=== PATIENT | female | born 1960 | race American Indian/Alaskan Native ===

== ENCOUNTER 2016-08-18 07:41 | Day surgery (SDC) | payer OTHER ==
[2016-08-18 08:04] VITALS: BMI 18.7
[2016-08-18 08:27] VITALS: O2SAT 100
[2016-08-18] MEDS ORDERED: Lidocaine Hydrochloride 10 ML INJ ONE (09:06)
[2016-08-18] MEDS ORDERED: Propofol 10 mg/ml Inj (20 ML) ONE (09:06)
--- NOTE | 2016-08-18 09:37 | CP.SDSHP ---
Same Day Surgery H & P - History Proposed Procedure: endoscopy Pre-Op Diagnosis: epig pain, wt loss - Previous Medical/Surgical History Cardiac: Hypertension Endocrine/Metabolic: Diabetes Neuro: Seizure Disorder - Allergies Allergies: Allergies No Known Allergies Allergy (Verified 11/19/15 07:44) - Physical Exam Vital Signs: Vital Signs 08/18/16 08:12 Temperature 97 F L Pulse Rate 80 Respiratory 17 Rate Blood Pressure 122/80 O2 Sat by Pulse 100 Oximetry Mental Status: Alert & Oriented x3 Neuro: WNL Heart: WNL Lungs: WNL GI: WNL - {Optional Preform as Required} Abdomen: WNL - Impression Impression: epig [ain, gastritis Pt. Evaluated Today:Candidate for Anesthesia & Procedure: Yes - Date & Time Date: 08/18/16 Time: 09:05 Short Stay Discharge - Short Stay Discharge Admitting Diagnosis/Reason for Visit: ABDOMINAL PAIN Disposition: HOME/ ROUTINE
[2016-08-18 10:26] VITALS: RESP 20
[2016-08-18 11:19] VITALS: BP 133/82; PULSE 82; TEMP 97.1
== END 2016-08-18 11:10 | disposition home or self-care (01) ==
LOC: C.ENDO 07:41
PROVIDERS: ATTEND Internal Medicine Gastroenterology
DX: K29.70 Gastritis, unspecified, without bleeding (principal); K44.9 Diaphragmatic hernia without obstruction or gangrene
CPT/HCPCS: 43239; 82948; 88305; J2704

== ENCOUNTER 2017-11-14 07:52 | Day surgery (SDC) | payer OTHER ==
[2017-11-14 08:37] VITALS: O2SAT 100
[2017-11-14] MEDS ORDERED: Propofol 10 mg/ml Inj (20 ML) ONE (09:59)
--- NOTE | 2017-11-14 10:07 | CP.SDSHP ---
Same Day Surgery H & P - Previous Medical/Surgical History Endocrine/Metabolic: Diabetes, Other Neuro: Other Pain: 4.Moderate Pain - Allergies Allergies: Allergies No Known Allergies Allergy (Verified 11/14/17 08:23) - Physical Exam General Appearance: N Vital Signs: Vital Signs 11/14/17 11/14/17 08:30 08:34 Temperature 65 F L 65 F L Pulse Rate 65 65 Respiratory 19 19 Rate Blood Pressure 125/72 125/72 O2 Sat by Pulse 100 100 Oximetry Mental Status: Alert & Oriented x3 Neuro: Other Heart: Other Lungs: WNL GI: Other - {Optional Preform as Required} Breast: WNL Abdomen: Other Rectal: Other Integument: WNL : WNL Ortho: Other ENT: WNL - Impression Pt. Evaluated Today:Candidate for Anesthesia & Procedure: Yes - Date & Time Time: 10:07 Short Stay Discharge - Short Stay Discharge Admitting Diagnosis/Reason for Visit: ANEMIA, BODY WEIGHT LOSS Disposition: HOME/ ROUTINE
[2017-11-14] MEDS ORDERED: Lactated Ringer's 1,000 ML IV ONE (10:10)
[2017-11-14] MEDS ORDERED: cefTRIAXone IV 1 gm in Dextros 50 ML IVPB ONE (10:22)
[2017-11-14] MEDS ORDERED: Belladonna-Phenobarbital PO STA (10:23)
[2017-11-14] MEDS ORDERED: Sucralfate 1 gm/10 ml Oral Susp UD PO ONE (10:45)
[2017-11-14 14:48] VITALS: TEMP 98
[2017-11-14 14:56] VITALS: BP 133/91; PULSE 70; RESP 23
== END 2017-11-14 11:15 | disposition home or self-care (01) ==
LOC: C.ENDO 07:52
PROVIDERS: ATTEND Specialist
DX: K29.50 Unspecified chronic gastritis without bleeding (principal); D64.9 Anemia, unspecified; R63.4 Abnormal weight loss; K21.0 Gastro-esophageal reflux disease with esophagitis; K44.9 Diaphragmatic hernia without obstruction or gangrene
CPT/HCPCS: 43239; 82948; 88305; 88342; J0696; J2001; J2704; J7120

== ENCOUNTER 2017-11-21 08:17 | Day surgery (SDC) | payer OTHER ==
[2017-11-21 08:58] VITALS: TEMP 98.6
[2017-11-21] MEDS ORDERED: Propofol 10 mg/ml Inj (20 ML) ONE ×2 (11:07→11:21)
[2017-11-21] MEDS ORDERED: Belladonna-Phenobarbital PO STA (11:09)
--- NOTE | 2017-11-21 11:09 | CP.SDSHP ---
Same Day Surgery H & P - History Proposed Procedure: COLONSCOPY Pre-Op Diagnosis: SEE NOTES - Previous Medical/Surgical History Endocrine/Metabolic: Diabetes, Other Neuro: Other Misc: Other Pain: 4.Moderate Pain - Allergies Allergies: Allergies No Known Allergies Allergy (Verified 11/21/17 08:33) - Physical Exam General Appearance: N Vital Signs: Vital Signs 11/21/17 08:42 Temperature 98.6 F Pulse Rate 86 Respiratory 20 Rate Blood Pressure 127/79 O2 Sat by Pulse 99 Oximetry Mental Status: Alert & Oriented x3 Neuro: Other Heart: Other Lungs: WNL GI: Other - Impression Pt. Evaluated Today:Candidate for Anesthesia & Procedure: Yes - Date & Time Time: 11:09 Short Stay Discharge - Short Stay Discharge Admitting Diagnosis/Reason for Visit: ABNORMAL WEIGHT LOSS,ANEMIA, UNSPECIFIED Disposition: HOME/ ROUTINE
[2017-11-21 11:42] VITALS: O2SAT 100
[2017-11-21 13:26] VITALS: PULSE 66
[2017-11-21 13:28] VITALS: BP 138/75; RESP 12
== END 2017-11-21 12:50 | disposition home or self-care (01) ==
LOC: C.ENDO 08:17
PROVIDERS: ATTEND Specialist
DX: K52.9 Noninfective gastroenteritis and colitis, unspecified (principal); K64.8 Other hemorrhoids; R63.4 Abnormal weight loss; D64.9 Anemia, unspecified; E11.9 Type 2 diabetes mellitus without complications
CPT/HCPCS: 45380; 82948; 88305; J2704